=== PATIENT | female | born 1950 | race Caucasian/White ===

== ENCOUNTER 2018-12-29 07:55 | Inpatient (IN) ==
[2018-12-29] MEDS ORDERED: ZOFRAN IV ONE (08:54)
[2018-12-29] MEDS ORDERED: NS 500 ML IV ONE (08:54)
--- NOTE | 2018-12-29 09:01 | PROVIDER DOCUMENTATION ---
HPI-Abdominal Pain/GI Problem - General Chief Complaint: N/V/D Stated Complaint: NAUSEA Time Seen by Provider: 12/29/18 08:42 Allergies/Adverse Reactions: Patient Allergies Allergy/AdvReac Type Severity Reaction Status Date / Time codeine [Codeine] Allergy Mild RASH Verified 05/09/15 18:33 Sulfa (Sulfonamide AdvReac Mild VOMITING Verified 05/09/15 18:33 Antibiotics) Home Medications: Home Medication List Medication Instructions Recorded Confirmed Last Taken Type Amitriptyline [Elavil] 25 mg PO QHS 03/10/12 03/31/14 03/30/14 22:00 History Citalopram [Celexa] 40 mg PO DAILY 03/10/12 03/31/14 03/30/14 09:00 History Hydrochlorothiazide 25 mg PO DAILY 03/10/12 03/31/14 03/30/14 09:00 History LISINOpril [Prinivil] 20 mg PO DAILY 03/10/12 03/31/14 03/30/14 09:00 History Lovastatin 20 mg PO QHS 03/10/12 03/31/14 03/30/14 21:00 History Meloxicam [Mobic] 15 mg PO DAILY 03/10/12 03/31/14 03/30/14 09:00 History Mometasone Furoate [Asmanex] 0.135 gm IH QHS 03/10/12 03/31/14 03/24/14 21:00 History Montelukast [Singulair] 10 mg PO DAILY 03/10/12 03/31/14 03/28/14 21:00 History Ascorbate Calcium [Aisha-C] 500 mg PO DAILY 03/27/14 03/31/14 03/24/14 09:00 History Glucosamine/D3/Boswellia Marisa 1 each PO BID 03/27/14 03/31/14 03/24/14 09:00 History [Osteo Bi-Flex Caplet] Krill/[place]-3/Dha/Epa/Lipids 1 each PO DAILY 03/27/14 03/31/14 03/24/14 09:00 History [Krill Oil 300 mg Softgel] Lansoprazole 15 mg PO DAILY 03/27/14 03/31/14 03/30/14 09:00 History Meclizine HCl [Antivert] 50 mg PO BID 03/27/14 03/31/14 03/29/14 09:00 History Metformin [Glucophage] 500 mg PO BID 03/27/14 03/31/14 03/30/14 22:00 History Potassium Chloride E.r. [Klor-Con] 10 meq PO DAILY 03/27/14 03/31/14 03/28/14 21:00 History Sennosides/Docusate Sodium 1 each PO DAILY 03/27/14 03/31/14 03/28/14 21:00 History [Pericolace] Hydrocodone/APAP 7.5 mg/325 mg 1 - 2 each PO Q4-6H PRN PRN #60 04/03/14 Unknown Rx [[place]-7.5] tablet Rivaroxaban [Xarelto] 10 mg PO Q24H #14 tablet 04/03/14 Unknown Rx Ondansetron [Zofran Odt] 8 mg PO Q8H PRN #10 tab.rapdis 05/09/15 Unknown Rx Clindamycin [Cleocin] 150 mg PO Q6HR #30 cap 05/12/17 Unknown Rx Hydrocodone/APAP 5 mg/325 mg 1 ea PO Q6H PRN PRN #12 tab 05/12/17 Unknown Rx [[place]-5] - History of Present Illness-ABD Nature of Presenting Problems: c/o N/V started early this am. Says had vertigo before it started. Her son brought her a phenergan he had. Says that when it wears off, she will start vomiting again. Had diarrhea once got here. Denies abd pain. Appears anxious. Also says she pulled her L arm yest, has hurt since. Quality of Pain: reports: none Timing: reports: improving Associated Symptoms: reports: diarrhea Similar Symptoms Previously?: Yes Recently seen or treated by another doctor?: No Review of Systems - Adult - REVIEW OF SYSTEMS - ADULT Constitutional: reports: no symptoms reported Eyes: reports: no symptoms reported Ears, Nose, Mouth & Throat: reports: no symptoms reported Cardiovascular: reports: no symptoms reported Gastrointestinal: reports: see HPI Genitourinary: reports: no symptoms reported Musculoskeletal: reports: see HPI Integumentary: reports: no symptoms reported Neurological: reports: no symptoms reported Psychiatric: reports: no symptoms reported Endocrine: reports: no symptoms reported Hematologic/Lymphatic: reports: no symptoms reported Allergic/Immunologic: reports: no symptoms reported Past History - Adult - PAST MEDICAL HISTORY-ADULT Major Childhood Illnesses: reports: denies history Cardiovascular: reports: HTN Respiratory: reports: asthma, bronchitis Gastrointestinal: reports: denies history Obstetrical/Gynecological: reports: denies history Genitourinary: reports: denies history Musculoskeletal: reports: denies history Neurological: reports: denies history Endocrine/Immune: reports: Diabetes Other Conditions: reports: denies history - PRIOR SURGERIES/PROCEDURES Surgical/Procedure History: reports: hysterectomy - PRIOR HOSPITALIZATIONS Prior Hospitalizations: reports: none - IMMUNIZATION STATUS Childhood Immunizations: See Nurse Assessment Flu Vaccine: See Nurse Assessment - FAMILY HISTORY Family History: reviewed, not pertinent Physical Exam-General - PHYSICAL EXAM-ADULT Initial Vital Signs Reviewed: Yes - CONSTITUTIONAL General Appearance: appears well, alert, anxious - EYES Eyes: PERRL/EOMI, pink conjunctivae - HEAD, EARS, NOSE, MOUTH & THROAT HENMT: normocephalic/atraumatic, moist mucous membranes, normal ENT inspection, pharynx normal - NECK Neck: non-tender, full range of motion, supple - RESPIRATORY Respiratory: chest non-tender, lungs clear, normal breath sounds, no pleuratic chest pain, no respiratory distress, no accessory muscle use - CARDIOVASCULAR Cardiovascular: regular rate, rhythm, no edema - GASTROINTESTINAL (ABDOMEN) Abdominal Exam: normal bowel sounds, non tender, soft - MUSCULOSKELETAL Back Exam: normal inspection, no CVA tenderness, no vertebral tenderness Extremity: normal range of motion, non-tender, normal gait, normal inspection - SKIN Integumentary: normal color, normal turgor, warm/dry - NEUROLOGIC 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 as tested, grossly normal, no motor/sensory deficits - PSYCHIATRIC Psych/Mental Status: normal mood/affect, normal thought content, normal thought process, oriented x 3 Progress - PLAN OF CARE/RESULTS Progress/Plan/Lab Results: Vital Signs - 8 hr 12/29/18 08:10 Temperature 97.9 F Pulse Rate 66 Respiratory Rate 33 H Blood Pressure 142/60 O2 Sat by Pulse Oximetry 100 Orders Category Date Time Status Saline Loc DIRECTED Care 12/29/18 08:41 Active NPO Diet 12/29/18 08:41 Active AMYLASE [CHEM] Stat Lab 12/29/18 08:41 Ordered CBC WITH ELECTRONIC DIFF [HEME] Stat Lab 12/29/18 08:41 Ordered COMPREHENSIVE METABOLIC PANEL [CHEM] Stat Lab 12/29/18 08:41 Ordered LIPASE [CHEM] Stat Lab 12/29/18 08:41 Ordered URINALYSIS W/POSS RFLX CULT [URINALYSIS] Stat Lab 12/29/18 08:41 Uncollected Ns 500 ml IV Bolus X1 Med 12/29/18 08:54 Ordered 0.9% Sodium Chloride Inj [Ns] 500 ml IV 999 mls/hr Ondansetron [Zofran] Med 12/29/18 08:54 Once 8 mg IV NOW ONE Result Diagrams: 12/29/18 08:26 12/29/18 08:26 - REASSESSMENT Reassessment #1 Time Reassessed: 12:24 (was feeling ines until stood, thing spun. No spinning with turning head to either side, nor looking up) Departure - Departure Referrals and Follow-Ups: Tahira Lema CRNP [Primary Care Provider] -
[2018-12-29 09:15] LABS: BASO# 0.02 X1000 (0.0-0.2); BASO% 0.3 % (0.0-0.8); EOS# 0.39 X1000 (0.0-0.7); EOS% 4.9 % (0.0-10.0); HEMATOCRIT 38.8 % (37.0-47.0); HEMOGLOBIN 13.3 g/dL (12.0-16.0); LYMPH# 1.99 X1000 (1.2-3.4); LYMPH% 25.1 % (20.5-51.1); MCH 29.2 PG (27-31); MCHC 34.3 g/dL (33-37); MCV 85.3 FL (81-99); MONO# 0.72 X1000 (0.11-0.59); MONO% 9.1 % (1.7-9.3); MPV 10.2 FL (7.4-10.4); NEUT# 4.81 X1000 (1.4-6.5); NEUT% 60.6 % (42.2-75.2); PLT 264 X1000 (130-400); RBC 4.55 XMIL (4.2-5.4); RDW 12.6 % (11.5-14.5); WBC 7.93 X1000 (4.8-10.8)
[2018-12-29 09:27] LABS: ALB/GLOB RATIO 1.6; ALBUMIN 4.5 g/dL (3.5-5.0); CALCIUM 9.9 mg/dL (8.8-10.2); CREATININE 1.2 mg/dL (0.5-0.9); POTASSIUM 3.5 mmol/L (3.5-5.1); TOTAL BILIRUBIN 0.58 mg/dL (0.20-1.00); TOTAL PROTEIN 7.4 g/dL (6.3-8.3)
[2018-12-29 09:42] LABS: URINE SOURCE CLEAN CATCH
[2018-12-29 09:54] LABS: BILIRUBIN URINE NEGATIVE (NEGATIVE); BLOOD URINE SMALL (NEGATIVE); COLOR YELLOW; GLUCOSE URINE NEGATIVE (NEGATIVE); KETONE URINE NEGATIVE (NEGATIVE); LEUKOCYTES URINE SMALL (NEGATIVE); NITRITE URINE NEGATIVE (NEGATIVE); PH URINE 8.5; PROTEIN URINE NEGATIVE (NEGATIVE); SP GRAVITY URINE 1.009; TURBIDITY URINE CLEAR (CLEAR); UROBILINOGEN URINE NORMAL (NORMAL)
[2018-12-29 09:55] LABS: UR EPITHELIAL CELLS <10 /HPF (<10); URINE BACTERIA NEGATIVE /HPF; URINE WBC <10 /HPF (<10)
[2018-12-29] MEDS ORDERED: PHENERGAN IV PRN (13:17)
[2018-12-29] MEDS ORDERED: ZOFRAN IV PRN (13:17)
[2018-12-29] MEDS ORDERED: SODIUM CHLORIDE 0.9% INJ PRN (13:17)
[2018-12-29] MEDS ORDERED: SODIUM CHLORIDE 0.9% INJ ONE (13:28)
[2018-12-29] MEDS ORDERED: PROTONIX IV ONE (13:28)
[2018-12-29] MEDS ORDERED: PROTONIX IV SCH (13:30)
[2018-12-29] MEDS ORDERED: SODIUM CHLORIDE 0.9% INJ SCH ×3 (13:30→17:00)
[2018-12-29] MEDS ORDERED: NEXIUM IV SCH (13:45)
--- NOTE | 2018-12-29 13:52 | Diag Imaging Result Doc PS360 ---
EXAM: ABDOMEN FLAT/UPRIGHT 12/29/2018 HISTORY: N/V/D TECHNIQUE: Flat and upright abdomen COMMENT: There is some gas throughout the colon without evidence of dilatation. The small bowel and stomach are not distended. There is no evidence of organomegaly or mass. There are degenerative disc changes in the lumbar spine and scoliosis with convexity to the right is present. IMPRESSION: Nonspecific abdomen. Electronically signed by Shahzad Brito 12/29/2018 1:50 PM
--- NOTE | 2018-12-29 13:56 | Diag Imaging Result Doc PS360 ---
EXAM: CHEST-PORTABLE 12/29/2018 HISTORY: dyspnea TECHNIQUE: AP portable at 1339 COMMENT: There is no evidence of acute cardiac or pulmonary disease. Compared to the previous examination of 02/12/2018 there has been no significant change considering differences in inspiration and technique. IMPRESSION: No acute disease. Electronically signed by Shahzad Brito 12/29/2018 1:54 PM
[2018-12-29] MEDS: NS 1,000 ML IV SCH (14:45)
[2018-12-29] MEDS ORDERED: ANTIVERT PO ONE (16:45)
--- NOTE | 2018-12-29 17:10 | HISTORY AND PHYSICAL ---
PRIMARY CARE PROVIDER: PREM Hudson. CHIEF COMPLAINT: Dizziness and vomiting. HISTORY OF PRESENT ILLNESS: Mrs. Youngblood is a 68-year-old female who presents to the ER today with complaints of vomiting and dizziness. Patient states that on December 27 she started vomiting that night and has not quit vomiting since then. She states on Monday she felt a little bit better but that her vertigo that she has chronically was significant at that time and she was unable to get around very much. The patient states that she thought this would get better but it did not get any better so she decided to come to the ER today. Upon arriving to the ER, patient did have some diarrhea and vomiting. They administered some IV fluid to her and gave her some IV Zofran. The patient was feeling somewhat better. They were going to stand her to get some orthostatic blood pressures. The patient was unable to get out of the bed because she said the room was spinning. The patient denies any blood in her vomiting or her diarrhea. The patient states that she may have possibly had a fever on Monday but that she was unable to take her temperature but that she did feel some febrile and had some chills. The patient is not currently have any pain to her abdomen and states that she is not nauseous at present time. The patient states that she used to take meclizine for her vertigo that she has and she actually did some physical therapy for this but that she was taken off her meclizine because she started memantine for her memory. The patient denies any dysuria or burning when she voids. When asked patient what she ate on December 27 she cannot really remember. States that she may have ate some pork but that it was nothing out of the ordinary what she usually eats. No other pertinent findings at this time. PAST MEDICAL HISTORY: 1. Diabetes. 2. Hypertension. 3. Vertigo. 4. UTIs. 5. Kidney stones. 6. Carpal tunnel. 7. Arthritis. 8. Asthma. 9. GERD. 10. Osteoarthritis. 11. Short-term memory loss. 12. Hyperlipidemia. PAST SURGICAL HISTORY: Hysterectomy, colonoscopy, bilateral cataract surgery, right total knee surgery, carpal tunnel to the right hand. FAMILY HISTORY: Mother had uterine cancer. She from an aneurysm. Father had a history of skin cancer and had Alzheimer disease and from complications of Alzheimer disease. Brother who is still living has a history of prostate cancer. She has another brother still living and has a history of bladder cancer. 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 He had a stroke many years back and has chronic kidney disease. The patient denies any smoking, alcohol or drug abuse. ALLERGIES: Codeine, sulfa antibiotics, Celebrex. MEDICATIONS: Elavil 25 mg p.o. at bedtime, ascorbic calcium 500 mg p.o. daily, Celexa 40 mg p.o. daily, Osteo Bi-Flex 1 tablet p.o. b.i.d., hydrochlorothiazide 25 mg p.o. daily, Krill oil 300 mg p.o. daily, lansoprazole 15 mg p.o. daily, lisinopril 20 mg p.o. daily, lovastatin 20 mg p.o. at bedtime, Mobic 15 mg p.o. daily, Symbicort 2 puffs inhaled at bedtime, Singulair 10 mg p.o. daily, ProAir inhaler p.r.n., patient states that she does go to the arthritis doctor and receives an injection for her osteoarthritis every 4 months. LABORATORY AND DIAGNOSTICS: White blood cell count is 7.93, hemoglobin 13.3, hematocrit 38.8, platelet count is 264,000. Sodium is 139, potassium is 3.5, chloride is 101, carbon dioxide 23, BUN is 22, creatinine is 1.2, estimated GFR is 45, glucose is 113, calcium is 9.9, AST is 17, ALT is 12, amylase is 58, lipase is 23. Urinalysis is negative except for a small amount of leukocytes and small amount of blood. Abdominal x-ray shows gas throughout the colon but no evidence of dilation. Chest x-ray shows no acute disease. REVIEW OF SYSTEMS: A 12 point review of systems was performed and all negative except what is stated in HPI. PHYSICAL EXAMINATION: VITAL SIGNS: Temperature 97.9 degrees, pulse rate 66, respiratory rate 18, blood pressure is 142/60, O2 saturation is 100% on room air. Weight 155 pounds, height 5 feet 6. GENERAL: This is a 68-year-old female lying in the ER stretcher in no acute distress at present time. She is well nourished and well developed. HEENT: Atraumatic, normocephalic. Pupils equal, round, reactive to light. Mucous membranes are moist. No dentition noted. NECK: Supple. No lymphadenopathy. Trachea is midline. No JVD noted. CARDIOVASCULAR: Regular rate and rhythm. No murmurs, gallops, or rubs appreciated. RESPIRATIONS: Lungs sounds clear and equal bilaterally with no chest excursion. Respirations are nonlabored with no accessory muscle usage. ABDOMEN: Soft, nontender to palpation, nondistended. Bowel sounds are present in all 4 quadrants. NEUROLOGIC: The patient is awake, alert, and oriented. Follows all commands. All cranial nerves intact. MUSCULOSKELETAL: Full distal strength noted with no abnormalities or deformities. EXTREMITIES: No clubbing, cyanosis or edema noted. DP and PT pulses are present and palpable. SKIN: Warm, dry, and intact. No rashes, bruises. Turgor is fair. No diaphoresis. ASSESSMENT: 1. Gastroenteritis. 2. Vertigo. 3. Diabetes mellitus type 2. 4. Hypertension. 5. Osteoarthritis. 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 Give p.r.n. nausea medicine as ordered. Keep this patient NPO at present time until patient until she is able to hold p.o. medications and fluids. Repeat labs in the morning. Dictated by PREM Monteiro for Lopez oRa MD cc: Lopez Roa MD Pt seen examined with prem, pt has severe vertigo and has been taken off meclizine; pt's exam shows clear lungs, regular rate and rhythm and nonfocal neuro exam, plan is to hydrate and reinstitute meclizine and see if this improves her condition [facility]
--- NOTE | 2018-12-29 18:13 | HISTORY AND PHYSICAL ---
ADDENDUM: The patient presented with nausea, vomiting and intractable vertigo. She is usually well-controlled with meclizine, but she was taken off of that because of a possible reaction with the memantine she has been taking. I have never heard of that, but in any case the patient was admitted because she could not stand without passing out or collapsing. The patient was admitted for treatment. We will continue gentle hydration, antiemetics, antihistamines for treatment and follow closely. Disposition pending her clinical status. cc: Lopez Roa MD
[2018-12-29] MEDS: HUMULIN R SUBQ SCH ×2 (19:54→21:00)
[2018-12-29] MEDS: PEPCID IV SCH (20:01)
[2018-12-29] MEDS: SYMBICORT 160/4.5 MICROGM INHALER INH SCH (20:14)
--- NOTE | 2018-12-29 21:31 | Diag Imaging Result Doc PS360 ---
EXAM: CT HEAD W/O CONTRAST 12/29/2018 HISTORY: encephalopathy TECHNIQUE: This exam was performed using automated exposure control, adjustment of mA or kV according to patient size, and/or use of iterative reconstruction technique. COMMENT: There is enlargement of the lateral third and fourth ventricles. This is out of proportion to the degree of cerebral atrophy. The ventricles are not however significantly different in size from the previous examination of 05/12/2017. There is no evidence of bleed or abnormal extra-axial fluid collection and no mass effect is present. There is mucosal thickening in both maxillary sinuses and in the ethmoid air cells. This is worse than on the previous study. IMPRESSION: The possibility of hydrocephalus cannot be excluded although this has apparently remains stable since 2017. Chronic ethmoid and maxillary sinusitis. Electronically signed by Shahzad Brito 12/29/2018 9:29 PM
[2018-12-29] MEDS: DUONEB (A & A) INH PRN (23:36)
[2018-12-30] MEDS: NS 1,000 ML IV SCH ×2 (02:13→16:44)
[2018-12-30] MEDS: DUONEB (A & A) INH PRN ×6 (03:22→23:12)
[2018-12-30] MEDS: PEPCID IV SCH ×3 (04:58→20:50)
[2018-12-30] MEDS: HUMULIN R SUBQ SCH ×4 (06:03→20:51)
--- NOTE | 2018-12-30 06:59 | Diag Imaging Result Doc PS360 ---
EXAM: CHEST-PORTABLE 12/30/2018 HISTORY: vertigo TECHNIQUE: AP portable at 0620 COMMENT: The appearance of the chest has not changed significantly since 12/29/2018. IMPRESSION: Stable chest. Electronically signed by Shahzad Brito 12/30/2018 6:57 AM
[2018-12-30] MEDS: SYMBICORT 160/4.5 MICROGM INHALER INH SCH ×2 (07:35→19:23)
[2018-12-30 07:36] LABS: HEMOGLOBIN A1C 5.5 % (4.8-6.0)
[2018-12-30 07:42] LABS: BASO# 0.02 X1000 (0.0-0.2); BASO% 0.4 % (0.0-0.8); EOS# 0.06 X1000 (0.0-0.7); EOS% 1.1 % (0.0-10.0); HEMATOCRIT 34.7 % (37.0-47.0); HEMOGLOBIN 11.2 g/dL (12.0-16.0); LYMPH# 1.36 X1000 (1.2-3.4); MCH 28.5 PG (27-31); MCHC 32.3 g/dL (33-37); MCV 88.3 FL (81-99); MONO# 0.64 X1000 (0.11-0.59); MONO% 11.8 % (1.7-9.3); MPV 9.9 FL (7.4-10.4); NEUT# 3.36 X1000 (1.4-6.5); NEUT% 61.7 % (42.2-75.2); PLT 198 X1000 (130-400); RBC 3.93 XMIL (4.2-5.4); RDW 12.9 % (11.5-14.5); WBC 5.44 X1000 (4.8-10.8)
[2018-12-30 07:49] LABS: CALCIUM 8.9 mg/dL (8.8-10.2); CREATININE 1.1 mg/dL (0.5-0.9); MAGNESIUM 1.9 mg/dL (1.5-2.7); POTASSIUM 3.3 mmol/L (3.5-5.1)
[2018-12-30] MEDS: ANTIVERT PO SCH ×3 (08:30→20:50)
[2018-12-30] MEDS ORDERED: NORCO-7.5 PO PRN (16:25)
[2018-12-30] MEDS: POTASSIUM CHLORIDE 20 MEQ/SWI 20 MEQ/100 ML IVPB IV SCH ×2 (20:51→22:00)
--- NOTE | 2018-12-30 20:54 | PROGRESS NOTE ---
DATE: 12/30/2018 SUBJECTIVE: She seems better today. No major complaints. She says she sat up and did not pass out. She does want to drink something. OBJECTIVE: Vital Signs: Blood pressure is 125/49, heart rate 93, respiratory rate 18, temperature 98.7 degrees. Cardiovascular: Regular rate and rhythm. Pulmonary: Bilateral breath sounds. Clear to auscultation. GI: Soft, nontender, nondistended. Bowel sounds are positive. LABORATORY DATA: Her potassium was a little low at 3.3 and creatinine of 1.1. TSH 7.47, which is a bit on the high side. PROBLEM LIST: 1. Intractable vertigo. She is better on the meclizine. We will advance her diet and follow. 2. Hypokalemia. We will continue treatments. Supplement. Check magnesium levels and follow. 3. Intractable nausea and vomiting. It sounds like it was related to vertiginous changes. That seems better. Again, we will advance her diet. 4. I anticipate disposition garvey discharge tomorrow if improved. cc: Lopez Roa MD
[2018-12-31] MEDS: NS 1,000 ML IV SCH (05:40)
[2018-12-31] MEDS: HUMULIN R SUBQ SCH ×2 (06:45→16:13)
[2018-12-31 07:37] LABS: BASO# 0.01 X1000 (0.0-0.2); BASO% 0.2 % (0.0-0.8); EOS# 0.21 X1000 (0.0-0.7); EOS% 4.1 % (0.0-10.0); HEMATOCRIT 33.4 % (37.0-47.0); HEMOGLOBIN 10.9 g/dL (12.0-16.0); LYMPH# 1.43 X1000 (1.2-3.4); LYMPH% 28.2 % (20.5-51.1); MCH 29.1 PG (27-31); MCHC 32.6 g/dL (33-37); MCV 89.1 FL (81-99); MONO# 0.55 X1000 (0.11-0.59); MONO% 10.8 % (1.7-9.3); MPV 10.2 FL (7.4-10.4); NEUT# 2.87 X1000 (1.4-6.5); NEUT% 56.7 % (42.2-75.2); PLT 180 X1000 (130-400); RBC 3.75 XMIL (4.2-5.4); RDW 13.1 % (11.5-14.5); WBC 5.07 X1000 (4.8-10.8)
[2018-12-31] MEDS: SYMBICORT 160/4.5 MICROGM INHALER INH SCH (07:40)
[2018-12-31] MEDS: DUONEB (A & A) INH PRN ×2 (07:40→11:47)
[2018-12-31 08:07] LABS: AGAP 11; BUN 10 mg/dL (8-22); CALCIUM 8.8 mg/dL (8.8-10.2); CHLORIDE 109 mmol/L (98-107); COSMO 286; CREATININE 0.9 mg/dL (0.5-0.9); ESTIMATED GFR > 60; GLUCOSE 97 mg/dL (70-104); POTASSIUM 4.1 mmol/L (3.5-5.1); SODIUM 144 mmol/L (136-145); TCO2 24 mmol/L (25-35)
[2018-12-31] MEDS: ANTIVERT PO SCH ×2 (08:22→14:02)
[2018-12-31] MEDS: PEPCID IV SCH (08:22)
[2018-12-31 15:37] VITALS: BP 127/54
--- NOTE | 2019-01-01 09:45 | DISCHARGE SUMMARY ---
ADMISSION DATE: 12/29/2018 DISCHARGE DATE: 12/31/2018 DISCHARGE DIAGNOSIS: 1. Intractable vertigo. 2. Intractable nausea, vomiting. 3. Hypokalemia. HISTORY/HOSPITAL COURSE: Briefly this is a 68 -year-old female with history of confusion, comes RA with history of vertigo. She had been taken off her meclizine because of there was a putative interaction with amantadine, maybe there was concern over overuse, I am not entirely sure but any in any case she came in, attempted to hydrate her, but every time she stood up she got so dizzy she almost passed out and then she had severe nausea, vomiting so she was admitted for treatment. She was placed on fluids. We resumed her meclizine because at this point she seemed nonfunctional without it. Her imaging was really unremarkable. We advanced her diet. Since we started this she seemed to be okay. Curiously, she had an MRI in February 2018 that showed a mildly prominent ventricular system, but that was unchanged since 2017. Probably need to recommend follow up with neurology. DISCHARGE CONDITION: Stable. We will continue to follow. Return for any worsening clinical status. DISCHARGE MEDICATIONS: I do not have her outpatient list completely, but I did resume her meclizine 25 t.i.d. Apparently, she is on lisinopril, Singulair, Celexa, gabapentin, lovastatin, meloxicam, amantadine, metformin, ProAir, fluticasone, hydrochlorothiazide which I may stop, advised to stop. Discharge condition is stable. We will continue to follow. Recommend follow up with Dr. Roque and PCP is PRME Hudson. cc: Lopez Roa MD
== END 2018-12-31 18:15 | disposition home or self-care (01) | DRG 149 ==
LOC: ED 07:55 → 3N 15:00
PROVIDERS: ATTEND Internal Medicine
CPT/HCPCS: 70450; 71010; 71045; 74019; 74020; 80048; 80053; 81001; 82150; 82550; 82948; 83036; 83690; 83735; 84443; 84484; 85025; 87088; 87324; 94640; 94761; A9270; C9113; J2405; J2550; J3480; J7030; J7040; S0028; S0164; XXXXX